=== PATIENT | female | born 1985 | race Caucasian/White ===

== ENCOUNTER 2016-11-13 13:02 | Emergency (ER) | payer BC ==
[~2016-11-13] VITALS: Ht 160 cm; Wt 59.0 kg
[2016-11-13 13:19] VITALS: BP_SYST 112
[2016-11-13] MEDS ORDERED: DIPH-TET-PERTUS Vaccine 0.5 ML VIAL (ADACEL) I.M. ONE (13:30)
[2016-11-13] MEDS ORDERED: DIPH-TET-PERTUS Vaccine 0.5 ML VIAL (ADACEL) IM ONE (13:30)
[2016-11-13 14:01] VITALS: BP_SYST 112
== END 2016-11-13 14:01 | disposition home or self-care (01) ==
LOC: SED 13:02
DX: S61.012A Laceration without foreign body of left thumb without damage to nail, initial encounter (principal); Z88.5 Allergy status to narcotic agent; W26.0XXA Contact with knife, initial encounter; Y93.89 Activity, other specified; Y92.090 Kitchen in other non-institutional residence as the place of occurrence of the external cause; Y99.8 Other external cause status
CPT/HCPCS: 90715; 99283